=== PATIENT | female | born 1965 | race Caucasian/White ===

== ENCOUNTER 2024-07-05 12:28 | Emergency (ER) | payer OTHER, SELFPAY | END 2024-07-05 13:40 | disposition home or self-care (01) | LOC: NAV ERS 12:28 | DX: J06.9 Acute upper respiratory infection, unspecified (principal); J01.90 Acute sinusitis, unspecified; E07.9 Disorder of thyroid, unspecified; Z79.899 Other long term (current) drug therapy | CPT/HCPCS: 71046; 87428 ==